=== PATIENT | female | born 1970 | race Caucasian/White ===

== ENCOUNTER 2024-01-30 11:20 | Inpatient (IN) | payer MEDICAID ==
[~2024-01-30] VITALS: Ht 175.3 cm; Wt 68.2 kg
[2024-01-30 12:45] LABS: BILIRUBIN,URINE NEGATIVE (Neg); CLARITY,URINE CLEAR (Clear); COLOR,URINE STRAW (Yellow); GLUCOSE, URINE NEGATIVE (Neg); KETONES,URINE NEGATIVE (Neg); LEUKOCYTE ESTERASE ,URINE NEGATIVE (Neg); NITRITES, URINE NEGATIVE (Neg); OCCULT BLOOD,URINE NEGATIVE (Neg); PROTEIN,URINE NEGATIVE (Neg); UROBILINOGEN,URINE 0.2 E.U/dL (0.2-1.0)
[2024-01-30 12:57] LABS: UA COLLECTION TYPE NON-SPECIFIED
[2024-01-30] MEDS ORDERED: ATOR20TA PO (12:57)
[2024-01-30] MEDS ORDERED: METO50TA16 PO (12:57)
[2024-01-30] MEDS ORDERED: FURO-150 PO (12:57)
[2024-01-30] MEDS ORDERED: NICO-630 TD (12:57)
[2024-01-30] MEDS ORDERED: FOLI0.4T6 PO (12:57)
[2024-01-30] MEDS ORDERED: THIA100T70 PO (12:57)
[2024-01-30] MEDS ORDERED: RIVA20TA PO (12:57)
[2024-01-30] MEDS ORDERED: LEVO25CA4 PO (12:57)
[2024-01-30] MEDS ORDERED: METO100T14 PO (12:57)
[2024-01-30] MEDS ORDERED: LIPA1CAP8 PO (12:57)
[2024-01-30] MEDS ORDERED: CHOL20003 PO (12:57)
[2024-01-30] MEDS ORDERED: PANT-47 PO (12:57)
[2024-01-30 13:06] LABS: BASOPHILS # (AUTO) 0.1 X10'3 (0-0.2); BASOPHILS % (AUTO) 0.9 % (0-1); EOSINOPHILS # (AUTO) 0.3 X10'3 (0-0.9); EOSINOPHILS % (AUTO) 4.4 % (0-6); HEMATOCRIT 37.4 % (35.0-45.0); HEMOGLOBIN 12.5 g/dl (12.0-16.0); LYMPHOCYTES # (AUTO) 2.8 X10'3 (1.1-4.8); LYMPHOCYTES % (AUTO) 37.7 % (21-51); MEAN CORPUSCULAR HEMOGLOBIN 30.6 PG (27.0-31.0); MEAN CORPUSCULAR HGB CONC 33.4 g/dL (33.0-36.5); MEAN CORPUSCULAR VOLUME 91.6 FL (78-98); MEAN PLATELET VOLUME 7.3 FL (7.4-10.4); MONOCYTES # (AUTO) 0.5 X10'3 (0-0.9); NEUTROPHILS # (AUTO) 3.7 X10'3 (1.8-7.7); PLATELET COUNT 275 X10'3 (140-440); RED BLOOD COUNT 4.09 X10'6 (4.20-5.60); RED CELL DISTRIBUTION WIDTH 15.7 % (11.5-14.5); WHITE BLOOD COUNT 7.5 X10'3 (4.5-11.0)
[2024-01-30] MEDS: ondansetron/PF 4mg/2ml inj IV PRN (13:23)
[2024-01-30] MEDS: morphine 2 MG/ML inj. syringe IV PRN (13:23)
[2024-01-30 13:26] LABS: ALANINE AMINOTRANSFERASE 154 U/L (12-78); ALBUMIN 3.5 G/DL (3.4-5.0); ALKALINE PHOSPHATASE 181 IU/L (46-116); ANION GAP 5 (8-16); ASPARTATE AMINO TRANSFERASE 84 U/L (10-37); BILIRUBIN,TOTAL 0.4 MG/DL (0.1-1.0); BLOOD UREA NITROGEN 12 MG/DL (7-18); BUN/CREATININE RATIO 17.1 (10.0-20.0); CALCIUM 9.3 MG/DL (8.5-10.1); CHLORIDE 104 MMOL/L (99-107); GLUCOSE 122 MG/DL (70-104); LIPASE 54 U/L (16-77); MAGNESIUM 1.4 MG/DL (1.5-2.4); SODIUM 137 MMOL/L (135-145); TOTAL CARBON DIOXIDE 27.7 MMOL/L (24-32); TOTAL PROTEIN 6.9 G/DL (6.4-8.2); eCRCL 96 ML/MIN; eGFR 87 ML/MIN
[2024-01-30] MEDS ORDERED: acetaminophen 325mg tablet PO PRN (16:25)
[2024-01-30] MEDS ORDERED: HYDROcodone/acetaminophen 5mg/325mg tablet PO PRN ×2 (16:25)
[2024-01-30] MEDS ORDERED: magnesium Cl slow-release 64mg tablet PO PRN (16:25)
[2024-01-30] MEDS ORDERED: magnesium sulf-water 2g/50mL 50 ML IV PRN (16:25)
[2024-01-30] MEDS ORDERED: magnesium hydroxide 30ml (MOM) UD suspension PO PRN (16:25)
[2024-01-30] MEDS ORDERED: potassium Cl 40MEQ/1/2NS 520ml 520 ML IV PRN (16:25)
[2024-01-30] MEDS ORDERED: ondansetron/PF 4mg/2ml inj IV PRN (16:25)
[2024-01-30] MEDS ORDERED: magnesium sulf-water 4G/100mL 100 ML IV PRN (16:25)
[2024-01-30] MEDS ORDERED: mag hydrox/Alum hydrox/simeth 30ml oral suspension PO PRN (16:25)
[2024-01-30] MEDS ORDERED: potassium Cl 20 mEq SR tablet PO PRN ×2 (16:25)
[2024-01-30] MEDS: ringers solution, lacted 1,000 ML IV SCH (17:36)
[2024-01-30] MEDS: LORazepam 2 mg/ml vial IV PRN (17:36)
[2024-01-30] MEDS ORDERED: docusate sod 100mg capsule PO SCH (20:00)
[2024-01-30] MEDS ORDERED: K and/or MAG REPLACEMENT MC SCH (20:00)
[2024-01-31 04:11] VITALS: BP 136/78; PULSE 78; RESP 15; TEMP 98.2; O2SAT 96
[2024-01-31] MEDS ORDERED: folic acid 1mg tablet PO SCH (08:00)
[2024-01-31] MEDS ORDERED: thiamine 100mg tablet PO SCH (08:00)
== END 2024-01-30 21:00 | disposition left against medical advice (07) | DRG 282 ==
LOC: ER 11:22 → ED HOLD 16:31
PROVIDERS: ADMIT Nurse Practitioner Family; ATTEND Nurse Practitioner Family
DX: K85.90 Acute pancreatitis without necrosis or infection, unspecified (principal); F10.11 Alcohol abuse, in remission; Z53.29 Procedure and treatment not carried out because of patient's decision for other reasons; K86.2 Cyst of pancreas; Z88.0 Allergy status to penicillin; Z88.8 Allergy status to other drugs, medicaments and biological substances; Y90.9 Presence of alcohol in blood, level not specified
CPT/HCPCS: 36415; 80053; 81003; 83690; 83735; 84484; 85025; 93005; 96374; 99285; G0378; J2060; J2270; J2405; J7030; J7120